=== PATIENT | female | born 1960 | race Caucasian/White ===

== ENCOUNTER 2016-08-16 01:02 | Emergency (ER) | payer OTHER ==
[~2016-08-16] VITALS: Ht 165.1 cm; Wt 74.8 kg
[~2016-08-16 01:02] MED LIST: METF1000 PO
[2016-08-16 01:17] VITALS: BP 120/75; PULSE 83; RESP 18; TEMP 97.8; O2SAT 98
--- NOTE | 2016-08-16 01:17 | NUR ---
Massimo bernardo in [facility] - 08/16/16 at 0523 by [email or web address] Pt placed in bed 3 and gowned up for evaluation
--- NOTE | 2016-08-16 01:30 | NUR ---
Pt presents to ED with c/o Left earache 10/10, constant for the last 6 hours, with pressure at the left side of head. Pt denies tinnitus or vertigo, stated she feels tired. A&ox4, denies SOB or chestpain, denies N/V/D, skin intact. Will continue to monitor
--- NOTE | 2016-08-16 02:25 | NUR ---
Placed in room 03 . Placed on monitoring and evaluation advisor, blood pressure machine and pulse oximeter. To gown for exam. Side rails up. Report given to OPAL Thurman.
--- NOTE | 2016-08-16 02:35 | NUR ---
ER at bedside examining patient.
--- NOTE | 2016-08-16 03:30 | NUR ---
left ear soaked in sterile water and irrigated
[2016-08-16] MEDS ORDERED: AMOXICILLIN 500 MG CAPSULE PO ONE (03:45)
[2016-08-16] MEDS ORDERED: HYDROcodone/ACETAMIN 5-325 MG TAB (NORCO/ VICODIN) PO ONE (03:45)
[2016-08-16 04:28] VITALS: BP 125/78; PULSE 80; RESP 18; TEMP 97.8; O2SAT 98
--- NOTE | 2016-08-16 04:28 | NUR ---
Patient given written and verbal discharge instructions and verbalizes understanding. ER MD discussed with patient the results and treatment provided. Patient in stable condition. ID arm band removed. Rx of Ibuprofen and amoxicillin given. Patient educated on pain management and to follow up with PMD. Pain Scale 0/10 . Opportunity for questions provided and answered.
== END 2016-08-16 04:28 | disposition home or self-care (01) ==
LOC: SED 01:02
DX: H66.92 Otitis media, unspecified, left ear (principal); M26.602 Left temporomandibular joint disorder, unspecified; E11.9 Type 2 diabetes mellitus without complications; Z90.49 Acquired absence of other specified parts of digestive tract; Z98.890 Other specified postprocedural states
CPT/HCPCS: 99283

== ENCOUNTER 2017-02-17 23:10 | Emergency (ER) | payer MEDICAID, OTHER ==
[~2017-02-17] VITALS: Ht 165.1 cm; Wt 71.7 kg
[2017-02-17 23:25] VITALS: BP_SYST 135
[2017-02-17] MEDS ORDERED: KETOROLAC TROMETHAMINE 60 MG/2 ML VIAL IM ONE (23:45)
[2017-02-18] MEDS ORDERED: MORPHINE 4 MG/ML INJ. SYRINGE IM ONE (00:15)
[2017-02-18 01:22] VITALS: BP_SYST 129
== END 2017-02-18 01:22 | disposition home or self-care (01) ==
LOC: SED 23:10
DX: M79.605 Pain in left leg (principal); J45.909 Unspecified asthma, uncomplicated; E11.9 Type 2 diabetes mellitus without complications; Z98.890 Other specified postprocedural states; Z79.84 Long term (current) use of oral hypoglycemic drugs
CPT/HCPCS: 96372; 99284; J1885; J2270

== ENCOUNTER 2017-12-08 08:30 | Emergency (ER) | payer MEDICAID ==
[~2017-12-08] VITALS: Ht 165.1 cm; Wt 70.8 kg
[2017-12-08 08:37] VITALS: BP_SYST 114
[2017-12-08] MEDS ORDERED: PREDNISONE 20 MG TABLET PO ONE (09:00)
[2017-12-08] MEDS ORDERED: KETOROLAC TROMETHAMINE 30 MG VIAL IM ONE (09:00)
[2017-12-08 09:12] LABS: BASOPHILS # (AUTO) 0.1 K/uL (0.0-0.2); BASOPHILS % (AUTO) 1.2 % (0.0-2.0); EOSINOPHILS # (AUTO) 0.1 K/uL (0.0-0.4); EOSINOPHILS % (AUTO) 1.7 % (0.0-4.0); HEMATOCRIT 38.9 % (36-48); HEMOGLOBIN 13.4 g/dL (12.0-16.0); LYMPHOCYTES % (AUTO) 32.1 % (20.5-51.5); MEAN CORPUSCULAR HEMOGLOBIN 31 pg (27-31); MEAN CORPUSCULAR HGB CONC 34 % (32-36); MEAN CORPUSCULAR VOLUME 89 fL (79.0-98.0); MONOCYTES # (AUTO) 0.4 K/uL (0.0-1.0); MONOCYTES % (AUTO) 6.2 % (1.7-9.3); NEUTROPHILS # (AUTO) 3.5 K/uL (1.8-7.7); NEUTROPHILS % (AUTO) 58.8 % (40.0-70.0); PLATELET COUNT (AUTO) 255 K/uL (130-430); RED BLOOD CELL COUNT(AUTO) 4.37 MIL/uL (4.2-6.2); RED CELL DISTRIBUTION WIDTH 12.4 % (9.0-15.0); WHITE BLOOD COUNT (AUTO) 6.1 K/uL (4.8-10.8)
[2017-12-08 09:26] LABS: ANION GAP 9 (5-15); CALCIUM 8.4 mg/dL (8.4-11.0); CHLORIDE 104 mmol/L (98-107); CREATININE 0.61 mg/dL (0.55-1.30); GLUCOSE 220 mg/dL (70-99); SODIUM SERUM 141 mmol/L (136-145); UREA NITROGEN, BLOOD 12 mg/dL (8-21)
[2017-12-08 09:27] LABS: GFR AFRICAN AMERICAN 130 mL/min (>90)
[2017-12-08 09:34] LABS: ALANINE AMINOTRANSFERASE 35 U/L (12-78); ALBUMIN 3.6 g/dL (3.4-4.8); ASPARTATE AMINOTRANSFERASE 27 U/L (10-37); TOTAL BILIRUBIN 0.5 mg/dL (0.0-1.0)
[2017-12-08] MEDS ORDERED: SUMAtriptan SUCCINATE 6 MG/0.5 ML VIAL SUBCUT ONE (10:15)
[2017-12-08] MEDS ORDERED: MORPHINE 4 MG/ML INJ. SYRINGE IM ONE (10:45)
[2017-12-08 12:15] VITALS: BP_SYST 114
== END 2017-12-08 12:15 | disposition home or self-care (01) ==
LOC: SED 08:30
DX: G51.0 Bell's palsy (principal); G43.909 Migraine, unspecified, not intractable, without status migrainosus; J45.909 Unspecified asthma, uncomplicated; E11.9 Type 2 diabetes mellitus without complications; F32.9 Major depressive disorder, single episode, unspecified; Z90.49 Acquired absence of other specified parts of digestive tract
CPT/HCPCS: 36415; 70450; 80053; 84484; 85025; 93005; 96372; 99285; J1885; J3030; J7512

== ENCOUNTER 2019-02-05 15:47 | Emergency (ER) | payer MEDICAID ==
[~2019-02-05] VITALS: Ht 165.1 cm; Wt 73.9 kg
[2019-02-05 16:03] VITALS: BP_SYST 145
--- NOTE | 2019-02-05 16:51 | NUR ---
Patient to ER bed 08 to gown for evaluation. Side rails up.
--- NOTE | 2019-02-05 16:55 | NUR ---
Pt brought by self , A&Ox4, ambulatory , pt presents to ER with lower abdominal pain radiating to back , denies N/V , c/o loose stool yesterday , skin pink and warm \, cap refill <3, VSS.
--- NOTE | 2019-02-05 17:05 | NUR ---
Dr Quiroga at bedside examining patient
[2019-02-05 17:48] LABS: BASOPHILS % (AUTO) 0.6 % (0.0-2.0); EOSINOPHILS # (AUTO) 0.1 K/uL (0.0-0.4); EOSINOPHILS % (AUTO) 0.9 % (0.0-4.0); HEMATOCRIT 41.3 % (36-48); HEMOGLOBIN 13.8 g/dL (12.0-16.0); LYMPHOCYTES # (AUTO) 2.2 K/uL (1.0-5.5); LYMPHOCYTES % (AUTO) 30.7 % (20.5-51.5); MEAN CORPUSCULAR HEMOGLOBIN 29 pg (27-31); MEAN CORPUSCULAR HGB CONC 33 % (32-36); MEAN CORPUSCULAR VOLUME 88 fL (79.0-98.0); MONOCYTES # (AUTO) 0.5 K/uL (0.0-1.0); MONOCYTES % (AUTO) 7.7 % (1.7-9.3); NEUTROPHILS # (AUTO) 4.2 K/uL (1.8-7.7); NEUTROPHILS % (AUTO) 60.1 % (40.0-70.0); PLATELET COUNT (AUTO) 243 K/uL (130-430); RED BLOOD CELL COUNT(AUTO) 4.69 MIL/uL (4.2-6.2); RED CELL DISTRIBUTION WIDTH 13.7 % (9.0-15.0)
--- NOTE | 2019-02-05 18:16 | NUR ---
Pt on stable condition, VSS, respirations even and unlabored.
[2019-02-05 18:36] LABS: CALCIUM 9.5 mg/dL (8.4-11.0); CREATININE 0.73 mg/dL (0.55-1.30); POTASSIUM 3.7 mmol/L (3.5-5.1)
[2019-02-05 18:40] LABS: PROTHROMBIN TIME 9.9 SECS (9.5-12.5)
[2019-02-05 18:54] LABS: ALBUMIN 3.5 g/dL (3.4-4.8); TOTAL BILIRUBIN 0.3 mg/dL (0.0-1.0)
[2019-02-05 20:51] VITALS: BP_SYST 142
--- NOTE | 2019-02-05 20:52 | NUR ---
Patient given written and verbal discharge instructions and verbalizes understanding. ER MD discussed with patient the results and treatment provided. Patient in stable condition. ID arm band removed. Rx of [place] and Motrin given. Patient educated on pain management and to follow up with PMD. Pain Scale 3/10 tolerable for patient . Opportunity for questions provided and answered. Medication side effect fact sheet provided.
== END 2019-02-05 20:52 | disposition home or self-care (01) ==
LOC: SED 15:47
DX: R10.30 Lower abdominal pain, unspecified (principal); R19.7 Diarrhea, unspecified; J45.909 Unspecified asthma, uncomplicated; E11.9 Type 2 diabetes mellitus without complications; F32.9 Major depressive disorder, single episode, unspecified
CPT/HCPCS: 36415; 80053; 82150-TC; 83605; 83690-TC; 84703; 85025; 85610-TC; 85730-TC; 99284

== ENCOUNTER 2019-08-03 21:37 | Emergency (ER) | payer MEDICAID ==
[~2019-08-03] VITALS: Ht 157.5 cm; Wt 72.6 kg
[2019-08-03 21:42] VITALS: BP_SYST 114
--- NOTE | 2019-08-03 21:42 | NUR ---
Patient triaged and placed in waiting room. VSS and patient appears in no acute distress at this time. Accompanied by DAUGTHER, awaiting available bed, and MD notified of need for MSE.
--- NOTE | 2019-08-03 22:07 | NUR ---
Patient to ER bed 3 to gown for evaluation. Side rails up. Report given to RUSS JOSEPH.
--- NOTE | 2019-08-03 22:24 | NUR ---
Patient AAO x 4 ambulates to ER bed 03 with complaints of 6/10 mid abdominal pain radiating to mid back x 3 days. Pain worsens when eating. Also reports nausea with 2 episodes of vomiting last night. Denies diarrhea and constipation. She states she took pain medication this afternoon but cannot recall the name. Even chest rise and fall with respirations. Will continue to monitor.
--- NOTE | 2019-08-03 22:36 | NUR ---
ER Dr. Mccarty at bedside examining patient.
[2019-08-03 22:37] LABS: BASOPHILS % (AUTO) 0.7 % (0.0-2.0); EOSINOPHILS # (AUTO) 0.1 K/uL (0.0-0.4); EOSINOPHILS % (AUTO) 1.4 % (0.0-4.0); HEMATOCRIT 40.7 % (36-48); HEMOGLOBIN 13.7 g/dL (12.0-16.0); LYMPHOCYTES # (AUTO) 2.5 K/uL (1.0-5.5); LYMPHOCYTES % (AUTO) 36.1 % (20.5-51.5); MEAN CORPUSCULAR HEMOGLOBIN 30 pg (27-31); MEAN CORPUSCULAR HGB CONC 34 % (32-36); MEAN CORPUSCULAR VOLUME 90 fL (79.0-98.0); MONOCYTES # (AUTO) 0.6 K/uL (0.0-1.0); MONOCYTES % (AUTO) 8.2 % (1.7-9.3); NEUTROPHILS # (AUTO) 3.7 K/uL (1.8-7.7); NEUTROPHILS % (AUTO) 53.6 % (40.0-70.0); PLATELET COUNT (AUTO) 298 K/uL (130-430); RED BLOOD CELL COUNT(AUTO) 4.55 MIL/uL (4.2-6.2); RED CELL DISTRIBUTION WIDTH 13.8 % (9.0-15.0); WHITE BLOOD COUNT (AUTO) 6.9 K/uL (4.8-10.8)
[2019-08-03 22:54] LABS: BILIRUBIN,URINE NEGATIVE (NEGATIVE); BLOOD, URINE NEGATIVE (NEGATIVE); COLOR,URINE YELLOW (YELLOW); GLUCOSE,URINE 3+ (NEGATIVE); KETONES,URINE NEGATIVE (NEGATIVE); LEUKOCYTE ESTERASE ,URINE NEGATIVE (NEGATIVE); NITRITE, URINE NEGATIVE (NEGATIVE); PH,URINE 5.5 (5.0-8.0); PROTEIN URINE NEGATIVE (NEGATIVE); UROBILINOGEN,URINE 0.2 (0.2-1.0)
[2019-08-03 22:56] LABS: CALCIUM 8.9 mg/dL (8.4-11.0); POTASSIUM 3.6 mmol/L (3.5-5.1)
[2019-08-03 22:57] LABS: CREATININE 0.84 mg/dL (0.55-1.30)
[2019-08-03 23:02] LABS: ALBUMIN 3.6 g/dL (3.4-4.8); TOTAL BILIRUBIN 0.3 mg/dL (0.0-1.0)
[2019-08-03 23:56] LABS: BACTERIA,URINE MANY /HPF (None Seen); CLARITY/URINE HAZY (CLEAR); MUCUS,URINE 1+ /LPF (None Seen); RBC,URINE NONE SEEN /HPF (0-3)
[2019-08-04] MEDS ORDERED: NACL 0.9% 1,000 ML IV ONE
[2019-08-04] MEDS ORDERED: KETOROLAC TROMETHAMINE 30 MG VIAL IVP ONE (00:15)
[2019-08-04] MEDS ORDERED: MAG HYDROX/AL HYDROX/SIMETH 30 ML, LIDOCAINE VISCOUS 2% 15ML (PO) 10 ML, DICYCLOMINE HC... PO ONE ×3 (01:45)
[2019-08-04 02:16] VITALS: BP_SYST 131
--- NOTE | 2019-08-04 02:16 | NUR ---
Patient given written and verbal discharge instructions and verbalizes understanding. ER MD Dr. Mccarty discussed with patient the results and treatment provided. Patient in stable condition. ID arm band removed. IV catheter removed intact and dressing applied, no active bleeding. Rx of Flexeril and Protonix given. Patient educated on pain management and to follow up with PMD. Pain Scale 2/10. Opportunity for questions provided and answered. Medication side effect fact sheet provided.
== END 2019-08-04 02:16 | disposition home or self-care (01) ==
LOC: SED 21:37
DX: S23.3XXA Sprain of ligaments of thoracic spine, initial encounter (principal); K29.70 Gastritis, unspecified, without bleeding; E11.65 Type 2 diabetes mellitus with hyperglycemia; E87.1 Hypo-osmolality and hyponatremia; Z90.49 Acquired absence of other specified parts of digestive tract; X58.XXXA Exposure to other specified factors, initial encounter; Y93.89 Activity, other specified; Y92.89 Other specified places as the place of occurrence of the external cause; Y99.8 Other external cause status
CPT/HCPCS: 36415; 80053; 81000; 85025; 87086; 87186; 96374; 99283; J1885; J2001; J7030

== ENCOUNTER 2020-07-22 02:20 | Emergency (ER) | payer MEDICAID ==
[~2020-07-22] VITALS: Ht 165.1 cm; Wt 68.0 kg
[2020-07-22 02:30] VITALS: BP_SYST 151
[2020-07-22 03:34] VITALS: BP_SYST 145
== END 2020-07-22 03:34 | disposition home or self-care (01) ==
LOC: SED 02:20
DX: S32.2XXA Fracture of coccyx, initial encounter for closed fracture (principal); E11.9 Type 2 diabetes mellitus without complications; F32.9 Major depressive disorder, single episode, unspecified; W07.XXXA Fall from chair, initial encounter; Y93.89 Activity, other specified; Y92.89 Other specified places as the place of occurrence of the external cause; Y99.8 Other external cause status
CPT/HCPCS: 72220-TC; 99283

== ENCOUNTER 2021-08-11 23:46 | Emergency (ER) | payer MEDICAID, SELFPAY ==
[~2021-08-11] VITALS: Ht 165.1 cm; Wt 72.6 kg
[2021-08-12 00:38] VITALS: BP_SYST 146
[2021-08-12] MEDS ORDERED: METF-518 PO (00:44)
[2021-08-12 01:47] LABS: BASOPHILS % (AUTO) 0.5 % (0.0-2.0); EOSINOPHILS # (AUTO) 0.2 K/uL (0.0-0.4); HEMATOCRIT 39.8 % (36-48); HEMOGLOBIN 13.3 g/dL (12.0-16.0); LYMPHOCYTES # (AUTO) 2.7 K/uL (1.0-5.5); LYMPHOCYTES % (AUTO) 27.8 % (20.5-51.5); MEAN CORPUSCULAR HEMOGLOBIN 29 pg (27-31); MEAN CORPUSCULAR HGB CONC 33 % (32-36); MEAN CORPUSCULAR VOLUME 87 fL (79.0-98.0); MONOCYTES # (AUTO) 0.7 K/uL (0.0-1.0); MONOCYTES % (AUTO) 7.7 % (1.7-9.3); NEUTROPHILS # (AUTO) 6.1 K/uL (1.8-7.7); PLATELET COUNT (AUTO) 305 K/uL (130-430); RED CELL DISTRIBUTION WIDTH 13.2 % (9.0-15.0); WHITE BLOOD COUNT (AUTO) 9.8 K/uL (4.8-10.8)
[2021-08-12 02:18] LABS: CALCIUM 8.9 mg/dL (8.4-11.0); CREATININE 0.92 mg/dL (0.55-1.30); POTASSIUM 3.9 mmol/L (3.5-5.1)
[2021-08-12 02:26] LABS: ALBUMIN 3.1 g/dL (3.4-4.8); TOTAL BILIRUBIN 0.1 mg/dL (0.0-1.0)
[2021-08-12] MEDS ORDERED: DEXAMETHASONE SOD PHOSPHATE 10 MG/ML VIAL IVP ONE (02:45)
[2021-08-12] MEDS ORDERED: IPRATROPIUM BROM 0.5 MG/2.5 ML VIAL.NEB (ATROVENT) INH ONE (02:45)
[2021-08-12] MEDS ORDERED: ALBUTEROL SULFATE 0.083% 2.5 MG/3 ML VIAL.NEB INH ONE (02:45)
[2021-08-12] MEDS ORDERED: MAGNESIUM SULFATE 50 ML IV ONE (02:45)
[2021-08-12] MEDS ORDERED: KETAMINE 30 MG/3 ML SYRINGE IVP ONE (04:30)
[2021-08-12] MEDS ORDERED: MIDAZOLAM HCL 5 MG/5 ML VIAL IVP ONE (04:30)
[2021-08-12] MEDS ORDERED: IPRA3AMP9 INH (04:43)
[2021-08-12] MEDS ORDERED: FLO44 INH (04:43)
[2021-08-12] MEDS ORDERED: PROM5SYR PO (04:43)
[2021-08-12] MEDS ORDERED: AZIT-93 PO (04:49)
[2021-08-12] MEDS ORDERED: INSULIN REGULAR, HUMAN 10 UNITS/0.1 ML INJ SUBCUT ONE (06:15)
[2021-08-12 06:27] VITALS: BP_SYST 130
== END 2021-08-12 06:27 | disposition home or self-care (01) ==
LOC: SED 23:46
DX: J18.9 Pneumonia, unspecified organism (principal); B34.9 Viral infection, unspecified; Z20.822 Contact with and (suspected) exposure to COVID-19; Z79.899 Other long term (current) drug therapy; Z79.84 Long term (current) use of oral hypoglycemic drugs
CPT/HCPCS: 36415; 71045; 80053; 83880; 84484; 85025; 87420; 87426; 87804 ×2; 93005; 94640; 96365; 96366; 96372; 96375; 99285; C9803; J1100; J1815; J3475; J7613; U0003; 96361; 96374

== ENCOUNTER 2021-09-12 20:33 | Emergency (ER) | payer MEDICAID, SELFPAY ==
[~2021-09-12] VITALS: Ht 165.1 cm; Wt 72.6 kg
[~2021-09-12 20:33] MED LIST changes: +AZIT-93 PO; +FLO44 INH; +IPRA3AMP9 INH; +METF-518 PO; +PROM5SYR PO
[2021-09-12 20:42] VITALS: BP_SYST 126
[2021-09-12] MEDS ORDERED: NACL 0.9% 1,000 ML IV ONE (20:45)
[2021-09-12] MEDS ORDERED: KETOROLAC TROMETHAMINE 30 MG VIAL IVP ONE (20:45)
--- NOTE | 2021-09-12 21:00 | NUR ---
Pt brought self in from home due to LLQ abd pain x4 days. Pain started after lifting a pt at work. Reports she felt a sharp pain and pain has been constant since then. Pain radiates to Left lower back. Pt appears in no acute distress. Breathing adequately on RA. Placed on threat monitoring analyst. VSS.
[2021-09-12 21:34] LABS: HEMOGLOBIN 11.7 g/dL (12.0-16.0)
[2021-09-12 21:38] LABS: BILIRUBIN,URINE NEGATIVE (NEGATIVE); BLOOD, URINE NEGATIVE (NEGATIVE); COLOR,URINE YELLOW (YELLOW); GLUCOSE,URINE 3+ (NEGATIVE); KETONES,URINE TRACE (NEGATIVE); LEUKOCYTE ESTERASE ,URINE 1+ (NEGATIVE); NITRITE, URINE NEGATIVE (NEGATIVE); PH,URINE 5.5 (5.0-8.0); PROTEIN URINE NEGATIVE (NEGATIVE); UROBILINOGEN,URINE 0.2 (0.2-1.0)
[2021-09-12 21:42] LABS: CALCIUM 9.4 mg/dL (8.4-11.0); CREATININE 0.76 mg/dL (0.55-1.30); POTASSIUM 3.7 mmol/L (3.5-5.1)
[2021-09-12 21:48] LABS: ALBUMIN 3.6 g/dL (3.4-4.8)
[2021-09-12 21:49] LABS: MEAN CORPUSCULAR HEMOGLOBIN 29 pg (27-31)
[2021-09-12] MEDS ORDERED: NAPR-1172 PO (21:52)
[2021-09-12 21:53] LABS: CLARITY/URINE HAZY (CLEAR)
[2021-09-12 21:55] LABS: BASOPHILS % (AUTO) 0.5 % (0.0-2.0); EOSINOPHILS # (AUTO) 0.2 K/uL (0.0-0.4); EOSINOPHILS % (AUTO) 3.5 % (0.0-4.0); HEMATOCRIT 35.4 % (36-48); LYMPHOCYTES # (AUTO) 2.3 K/uL (1.0-5.5); LYMPHOCYTES % (AUTO) 35.9 % (20.5-51.5); MEAN CORPUSCULAR HGB CONC 33 % (32-36); MEAN CORPUSCULAR VOLUME 88 fL (79.0-98.0); MONOCYTES # (AUTO) 0.5 K/uL (0.0-1.0); MONOCYTES % (AUTO) 7.4 % (1.7-9.3); NEUTROPHILS # (AUTO) 3.4 K/uL (1.8-7.7); NEUTROPHILS % (AUTO) 52.7 % (40.0-70.0); PLATELET COUNT (AUTO) 192 K/uL (130-430); RED BLOOD CELL COUNT(AUTO) 4.03 MIL/uL (4.2-6.2); RED CELL DISTRIBUTION WIDTH 13.8 % (9.0-15.0); WHITE BLOOD COUNT (AUTO) 6.5 K/uL (4.8-10.8)
[2021-09-12 22:03] LABS: TOTAL BILIRUBIN 0.3 mg/dL (0.0-1.0)
--- NOTE | 2021-09-12 22:15 | NUR ---
Patient given written and verbal discharge instructions and verbalizes understanding. ER MD Triana discussed with patient the results and treatment provided. Patient in stable condition. ID arm band removed. IV catheter removed intact and dressing applied, no active bleeding. Rx of Naproxen sent to pharmacy of choice. Patient educated on pain management and to follow up with PMD. Pain Scale 0/10 upon discharge . Opportunity for questions provided and answered. Medication side effect fact sheet provided.
[2021-09-12 22:47] LABS: BACTERIA,URINE FEW /HPF (None Seen); MUCUS,URINE None Seen /LPF (None Seen); RBC,URINE 0-3 /HPF (0-3); WBC,URINE 20-50 /HPF (0-3)
[2021-09-12 22:49] VITALS: BP_SYST 126
== END 2021-09-12 22:15 | disposition home or self-care (01) ==
LOC: SED 20:33
DX: S39.011A Strain of muscle, fascia and tendon of abdomen, initial encounter (principal); E11.9 Type 2 diabetes mellitus without complications; J45.909 Unspecified asthma, uncomplicated; F32.A Depression, unspecified; Z79.899 Other long term (current) drug therapy; X58.XXXA Exposure to other specified factors, initial encounter; Y93.89 Activity, other specified; Y92.89 Other specified places as the place of occurrence of the external cause; Y99.8 Other external cause status
CPT/HCPCS: 36415; 74176; 76376; 80053; 81000; 85025; 87086; 96361; 96374; 99284; J1885; J7030

== ENCOUNTER 2022-01-23 13:05 | Emergency (ER) | payer MEDICAID ==
[~2022-01-23] VITALS: Ht 165.1 cm; Wt 73.9 kg
[~2022-01-23 13:05] MED LIST changes: +NAPR-1172 PO
[2022-01-23 13:12] VITALS: BP_SYST 128
--- NOTE | 2022-01-23 14:00 | NUR ---
Patient left without being seen.
== END 2022-01-23 14:00 | disposition left against medical advice (07) ==
LOC: SED 13:05
DX: M79.605 Pain in left leg (principal); Z53.21 Procedure and treatment not carried out due to patient leaving prior to being seen by health care provider

== ENCOUNTER → 2022-03-15 | Emergency (ER) | payer MEDICAID | END | disposition left against medical advice (07) | LOC: SED 23:26 | DX: R10.9 Unspecified abdominal pain (principal); Z53.21 Procedure and treatment not carried out due to patient leaving prior to being seen by health care provider ==

== ENCOUNTER 2022-05-21 04:20 | Emergency (ER) | payer MEDICAID ==
[~2022-05-21] VITALS: Ht 165.1 cm; Wt 68.5 kg
--- NOTE | 2022-05-21 04:28 | NUR ---
Patient triaged and placed in ED bed 2. VSS and patient appears in no acute distress at this time. MD Avila notified of need for MSE. Report given to OPAL Ferrer
--- NOTE | 2022-05-21 04:30 | NUR ---
Patient ambulated to bed 2 & connected to CM. Addendum: 05/21/22 at 0439 by [id number] Patient here for two issues: #1 Patient states she may have asthma. Patient has SOB, dyspnea, cough and congestion x 4 weeks; #2 Patient states she has 10/10 Right Shoulder with Limited FROM.
[2022-05-21 04:38] VITALS: BP_SYST 154
--- NOTE | 2022-05-21 04:47 | NUR ---
Dr. Avila at bedside for evaluation.
[2022-05-21] MEDS ORDERED: IPRATROPIUM BROM 0.5 MG/2.5 ML VIAL.NEB (ATROVENT) INH ONE (05:00)
[2022-05-21] MEDS ORDERED: predniSONE 20 MG TABLET PO ONE (05:00)
[2022-05-21] MEDS ORDERED: KETOROLAC TROMETHAMINE 60 MG/2 ML VIAL IM ONE (05:00)
[2022-05-21] MEDS ORDERED: ALBUTEROL SULFATE 0.083% 2.5 MG/3 ML VIAL.NEB INH ONE (05:00)
[2022-05-21] MEDS ORDERED: ALBMDI INH (05:16)
[2022-05-21] MEDS ORDERED: PRED20TA PO (05:16)
[2022-05-21] MEDS ORDERED: IBUP-1969 PO (05:16)
[2022-05-21] MEDS ORDERED: HYDR-3917 PO (05:16)
[2022-05-21 05:58] VITALS: BP_SYST 141
--- NOTE | 2022-05-21 05:58 | NUR ---
Patient given written and verbal discharge instructions and verbalizes understanding. ER MD discussed with patient the results and treatment provided. Patient in stable condition. ID arm band removed. IV catheter removed intact and dressing applied, no active bleeding. Rx of Albuteral, [place],Ibuprofin & Prednisone given. Patient educated on pain management and to follow up with PMD. Pain Scale 3/10. Opportunity for questions provided and answered. Medication side effect fact sheet provided.
== END 2022-05-21 05:58 | disposition home or self-care (01) ==
LOC: SED 04:20
DX: R06.02 Shortness of breath (principal); R05.9 Cough, unspecified; M25.511 Pain in right shoulder; J45.909 Unspecified asthma, uncomplicated; E11.9 Type 2 diabetes mellitus without complications; Z79.899 Other long term (current) drug therapy
CPT/HCPCS: 94640; 99283; 96372; J7512; J1885; J7613